=== PATIENT | male | born 1935 | race Caucasian/White ===

== ENCOUNTER 2017-10-25 06:29 | Observation (INO) ==
[2017-10-25] MEDS ORDERED: ASPIRIN 325 MG TABLET PO STA (06:56)
[2017-10-25] MEDS ORDERED: ASPIRIN 325 MG TABLET ONE (07:07)
[2017-10-25 07:41] LABS: Basophils % 0.2 % (0.0-0.8); Eosinophils # 0.1 10*3/uL (0.0-0.87); Eosinophils % 1.2 % (0.00-10.9); Hematocrit 35.1 VOL% (42.0-52.0); Hemoglobin 11.4 GM/DL (14.0-18.0); Immature Granulocytes % 0.3 %; Immature Granulocytes Absolute 0.03 #; Lymphocytes # 1.2 10*3/uL (1.4-4.0); Lymphocytes % 13.6 % (21.2-54.2); Mean Corpuscular HGB Conc 32.5 GM/DL (32-36); Mean Corpuscular Hemoglobin 29 PG (27-34); Mean Corpuscular Volume 89.3 FL (87-102); Mean Platelet Volume 11.4 FL (9.6-12.0); Monocytes # 0.7 10*3/uL (0.11-0.8); Monocytes % 8.5 % (1.7-12.7); Neutrophils # 6.6 10*3/uL (1.4-7.4); Neutrophils % 76.2 % (38.7-73.9); Platelet Count 142 T/CUMM (130-400); Red Blood Count 3.93 MC/CUMM (3.8-5.5); Red Cell Distribution Width 12.2 % (9.3-17.3); White Blood Count 8.6 T/CUMM (4-12)
[2017-10-25] MEDS ORDERED: ENOXAPARIN 100 MG/ML SYRINGE SUBCUT STA (07:41)
[2017-10-25] MEDS ORDERED: ENOXAPARIN 100 MG/ML SYRINGE SUBCUT ONE (07:43)
[2017-10-25 07:52] LABS: PT Patient Result 10.5 SECS; Partial Thromboplastin Time 26.1 SECS (0-40)
[2017-10-25 08:06] LABS: Apearance,Urine CLEAR (Clear); Bilirubin,Urine Negative (Negative); Blood, Urine Negative (Negative); Glucose,Urine (UA) Negative (Negative); Ketones,Urine Negative (Negative); Mucus,Urine Occasional /LPF (Occasional); Nitrite,Urine Negative (Negative); Protein,Urine Negative; RBC,Urine 1 /HPF (0-4); Squamous Epithelial Cell,Urine Occasional /HPF (0-10); Urine Color Yellow (Yellow); Urine Specific Gravity 1.016 (1.001-1.035); WBC,Urine <1 /HPF (0-6)
[2017-10-25 08:14] LABS: Albumin 3.2 G/DL (3.4-5.0); Bilirubin,Total 0.6 MG/DL (0.2-1.0); Calcium 8.7 MG/DL (8.5-10.1); Potassium 4.3 MMOL/L (3.5-5.1); Total Protein 6.6 G/DL (6.4-8.3)
[2017-10-25 08:25] LABS: Barbiturates Screen,Urine Negative (Negative); Benzodiazepines Screen,Urine Negative (Negative); Cannabinoid Screen,Urine Negative (Negative); Opiate Screen,Urine Negative (Negative); Phencyclidine Screen,Urine Negative (Negative)
[2017-10-25] MEDS ORDERED: ONDANSETRON 4 MG/2 ML VIAL IV PRN (10:31)
[2017-10-25] MEDS ORDERED: ZALEPLON 5 MG CAPSULE PO PRN (10:31)
[2017-10-25] MEDS ORDERED: ACETAMINOPHEN 325 MG TABLET PO PRN (10:31)
[2017-10-25] MEDS ORDERED: NITROGLYCERIN SL 0.4 MG TABLET SL PRN (10:31)
[2017-10-25] MEDS ORDERED: MAGNESIUM SULF RIDER 2 GM in PREMIX 1 EACH IV PRN (10:31)
[2017-10-25] MEDS ORDERED: BISACODYL 5 MG TABLET PO PRN (10:31)
[2017-10-25] MEDS: ENOXAPARIN 40 MG/0.4 ML SYRINGE SUBCUT SCH ×2 (13:34→13:40)
[2017-10-25] MEDS: CARVEDILOL 3.125 MG TABLET PO SCH ×3 (13:34→21:25)
[2017-10-26 07:56] LABS: Basophils % 0.7 % (0.0-0.8); Eosinophils # 0.1 10*3/uL (0.0-0.87); Eosinophils % 1.6 % (0.00-10.9); Hematocrit 33.3 VOL% (42.0-52.0); Hemoglobin 10.9 GM/DL (14.0-18.0); Immature Granulocytes % 0.2 %; Immature Granulocytes Absolute 0.01 #; Lymphocytes # 1.3 10*3/uL (1.4-4.0); Lymphocytes % 22.8 % (21.2-54.2); Mean Corpuscular HGB Conc 32.7 GM/DL (32-36); Mean Corpuscular Hemoglobin 29 PG (27-34); Mean Platelet Volume 11.6 FL (9.6-12.0); Monocytes # 0.6 10*3/uL (0.11-0.8); Monocytes % 10.9 % (1.7-12.7); Neutrophils # 3.7 10*3/uL (1.4-7.4); Neutrophils % 63.8 % (38.7-73.9); Platelet Count 123 T/CUMM (130-400); Red Blood Count 3.74 MC/CUMM (3.8-5.5); Red Cell Distribution Width 12.1 % (9.3-17.3); White Blood Count 5.8 T/CUMM (4-12)
[2017-10-26 08:39] LABS: Bilirubin,Total 0.6 MG/DL (0.2-1.0); Calcium 8.6 MG/DL (8.5-10.1); Potassium 3.9 MMOL/L (3.5-5.1); Total Protein 5.7 G/DL (6.4-8.3)
[2017-10-26] MEDS: ENOXAPARIN 40 MG/0.4 ML SYRINGE SUBCUT SCH (12:48)
[2017-10-26] MEDS ORDERED: diphenhydrAMINE CAP 25 MG CAPSULE PO PRN (14:21)
[2017-10-26] MEDS ORDERED: guaiFENesin/DM ER 600-30 MG TABLET PO PRN (14:21)
[2017-10-26] MEDS: CARVEDILOL 3.125 MG TABLET PO SCH ×2 (15:40→21:11)
[2017-10-26] MEDS: ASPIRIN EC 81 MG TABLET PO SCH (15:40)
[2017-10-26] MEDS ORDERED: DEXTROSE 50% 25 GM/50 ML VIAL IV PRN (16:42)
[2017-10-26] MEDS ORDERED: GLUCAGON 1 MG VIAL IM PRN (16:42)
[2017-10-26] MEDS ORDERED: BISACODYL 5 MG TABLET PO PRN (17:08)
[2017-10-26] MEDS ORDERED: DUTASTERIDE 0.5 MG CAPSULE PO SCH (21:00)
[2017-10-26] MEDS ORDERED: SIMVASTATIN 40 MG TABLET PO SCH (21:00)
[2017-10-26] MEDS: TAMSULOSIN 0.4 MG CAPSULE PO SCH (21:10)
[2017-10-26] MEDS: glipiZIDE 5 MG TABLET PO SCH (21:11)
[2017-10-26] MEDS: INSULIN LISPRO 100 UNIT/ML SUBCUT SCH (21:14)
[2017-10-27] MEDS ORDERED: SODIUM CHLORIDE 0.9% 1,000 ML IV SCH (03:00)
[2017-10-27 05:53] LABS: Basophils % 0.4 % (0.0-0.8); Eosinophils # 0.1 10*3/uL (0.0-0.87); Eosinophils % 1.6 % (0.00-10.9); Hematocrit 35.3 VOL% (42.0-52.0); Hemoglobin 11.4 GM/DL (14.0-18.0); Immature Granulocytes % 0.4 %; Immature Granulocytes Absolute 0.02 #; Lymphocytes # 1.4 10*3/uL (1.4-4.0); Lymphocytes % 24.4 % (21.2-54.2); Mean Corpuscular HGB Conc 32.3 GM/DL (32-36); Mean Corpuscular Hemoglobin 29 PG (27-34); Mean Corpuscular Volume 89.1 FL (87-102); Mean Platelet Volume 11.4 FL (9.6-12.0); Monocytes # 0.6 10*3/uL (0.11-0.8); Monocytes % 10.6 % (1.7-12.7); Neutrophils # 3.5 10*3/uL (1.4-7.4); Neutrophils % 62.6 % (38.7-73.9); Platelet Count 138 T/CUMM (130-400); Red Blood Count 3.96 MC/CUMM (3.8-5.5); Red Cell Distribution Width 11.9 % (9.3-17.3); White Blood Count 5.5 T/CUMM (4-12)
[2017-10-27] MEDS ORDERED: diphenhydrAMINE CAP 25 MG CAPSULE PO ONE (06:00)
[2017-10-27 06:17] LABS: Calcium 8.7 MG/DL (8.5-10.1); Potassium 4.2 MMOL/L (3.5-5.1)
[2017-10-27] MEDS ORDERED: DIAZEPAM 5 MG TABLET PO ONE (07:00)
[2017-10-27] MEDS ORDERED: LIDOCAINE 1%/EPI INJ 20 ML VIAL ONE (07:05)
[2017-10-27] MEDS ORDERED: HEPARIN/NACL 0.9% 2 UNITS/ML 2,000 ML IV ONE (07:05)
[2017-10-27] MEDS: ASPIRIN EC 81 MG TABLET PO SCH ×2 (07:11→08:40)
[2017-10-27] MEDS: PANTOPRAZOLE 40 MG TABLET PO SCH ×2 (07:12→08:41)
[2017-10-27] MEDS: CARVEDILOL 3.125 MG TABLET PO SCH ×2 (07:12→08:41)
[2017-10-27] MEDS: INSULIN LISPRO 100 UNIT/ML SUBCUT SCH ×2 (07:25→12:44)
[2017-10-27] MEDS ORDERED: MIDAZOLAM 2 MG/2 ML VIAL ONE (07:30)
[2017-10-27] MEDS ORDERED: fentaNYL 100 MCG/2 ML VIAL ONE (07:30)
[2017-10-27] MEDS: glipiZIDE 5 MG TABLET PO SCH (08:38)
[2017-10-27] MEDS: TAMSULOSIN 0.4 MG CAPSULE PO SCH (08:39)
[2017-10-27] MEDS ORDERED: ISOSORBIDE MONONITRATE 30 MG TABLET PO SCH (09:00)
[2017-10-27] MEDS ORDERED: LEVOTHYROXINE 75 MCG TABLET PO SCH (09:00)
[2017-10-27 16:34] VITALS: BP 122/56
== END 2017-10-27 17:35 | disposition home or self-care (01) ==
LOC: N.EDINP 06:29 → N.ED 06:29 → N.EDINP 11:35 → N.TELEN 11:59
PROVIDERS: ADMIT Internal Medicine Cardiovascular Disease; ATTEND Internal Medicine Cardiovascular Disease

== ENCOUNTER 2022-12-18 08:40 | Observation (INO) ==
[2022-12-18 09:06] LABS: Basophils % 0.3 % (0.0-0.8); Eosinophils % 0.1 % (0.00-10.9); Hemoglobin 10.9 GM/DL (14.0-18.0); Immature Granulocytes % 0.4 %; Immature Granulocytes Absolute 0.03 #; Lymphocytes # 0.6 10*3/uL (1.4-4.0); Mean Corpuscular HGB Conc 31.1 GM/DL (32-36); Mean Corpuscular Volume 96.2 FL (87-102); Mean Platelet Volume 10.6 FL (9.6-12.0); Monocytes # 0.6 10*3/uL (0.11-0.8); Neutrophils % 83.2 % (38.7-73.9); Platelet Count 124 T/CUMM (130-400); Red Blood Count 3.64 MC/CUMM (3.8-5.5); Red Cell Distribution Width 13.5 % (9.3-17.3); White Blood Count 7.15 T/CUMM (4-12)
[2022-12-18] MEDS ORDERED: FUROSEMIDE 100 MG/10 ML VIAL IV STA (09:18)
[2022-12-18 09:24] LABS: Albumin 3.2 G/DL (3.4-5.0); Bilirubin,Total 0.5 MG/DL (0.20-1.00); Calcium 8.5 MG/DL (8.5-10.1); Osmolality,Calculated 283.7 MOS/KG (273-304); Potassium 4.3 MMOL/L (3.5-5.1); Total Protein 6.4 G/DL (6.4-8.2)
[2022-12-18] MEDS ORDERED: GLUCAGON 1 MG VIAL IM PRN (10:59)
[2022-12-18] MEDS ORDERED: hydrALAZINE 20 MG/1 ML VIAL IV PRN (10:59)
[2022-12-18] MEDS ORDERED: ONDANSETRON 4 MG/2 ML VIAL IV PRN (10:59)
[2022-12-18] MEDS: HEPARIN 5,000 UNIT/1 ML VIAL SUBCUT SCH ×2 (11:00→21:32)
[2022-12-18] MEDS ORDERED: BISACODYL 5 MG TABLET PO PRN (11:04)
[2022-12-18] MEDS ORDERED: ALPRAZolam 0.5 MG TABLET PO PRN ×2 (11:04→17:58)
[2022-12-18] MEDS ORDERED: DEXTROSE 10% 250 ML BAG IV PRN (11:18)
[2022-12-18] MEDS: INSULIN LISPRO 100 UNIT/ML SUBCUT SCH ×3 (11:30→20:30)
[2022-12-18] MEDS: glipiZIDE 5 MG TABLET PO SCH (17:27)
[2022-12-18] MEDS: carvediloL 6.25 MG TABLET PO SCH (17:28)
[2022-12-18] MEDS ORDERED: SIMVASTATIN 80 MG TABLET PO SCH (21:00)
[2022-12-18] MEDS ORDERED: ALPRAZolam 0.5 MG TABLET PO SCH (21:00)
[2022-12-18] MEDS ORDERED: DUTASTERIDE 0.5 MG CAPSULE PO SCH (21:00)
[2022-12-18] MEDS: FUROSEMIDE 40 MG/4 ML VIAL IV SCH (21:32)
[2022-12-18] MEDS: TAMSULOSIN 0.4 MG CAPSULE PO SCH (21:33)
[2022-12-19] MEDS: HEPARIN 5,000 UNIT/1 ML VIAL SUBCUT SCH ×2 (03:11→11:31)
[2022-12-19 04:51] LABS: Basophils % 0.3 % (0.0-0.8); Eosinophils % 0.4 % (0.00-10.9); Hematocrit 35.3 VOL% (42.0-52.0); Hemoglobin 11.3 GM/DL (14.0-18.0); Immature Granulocytes % 0.5 %; Immature Granulocytes Absolute 0.04 #; Lymphocytes # 0.9 10*3/uL (1.4-4.0); Lymphocytes % 11.4 % (21.2-54.2); Mean Corpuscular Volume 95.1 FL (87-102); Mean Platelet Volume 11.1 FL (9.6-12.0); Monocytes # 0.8 10*3/uL (0.11-0.8); Monocytes % 9.9 % (1.7-12.7); Neutrophils % 77.5 % (38.7-73.9); Platelet Count 122 T/CUMM (130-400); Red Blood Count 3.71 MC/CUMM (3.8-5.5); Red Cell Distribution Width 13.8 % (9.3-17.3); White Blood Count 7.69 T/CUMM (4-12)
[2022-12-19 05:03] LABS: Calcium 8.8 MG/DL (8.5-10.1); Potassium 4.5 MMOL/L (3.5-5.1); Risk Ratio 1.75; VLDL Cholesterol 15.4 MG/DL
[2022-12-19] MEDS ORDERED: LEVOTHYROXINE 75 MCG TABLET PO SCH (06:30)
[2022-12-19 08:09] VITALS: BP 104/56
[2022-12-19] MEDS ORDERED: ASPIRIN EC 81 MG TABLET PO SCH (09:00)
[2022-12-19] MEDS ORDERED: ISOSORBIDE MONONITRATE 30 MG TABLET PO SCH (09:00)
[2022-12-19] MEDS: carvediloL 6.25 MG TABLET PO SCH (09:28)
[2022-12-19] MEDS: FUROSEMIDE 40 MG/4 ML VIAL IV SCH (09:28)
[2022-12-19] MEDS: INSULIN LISPRO 100 UNIT/ML SUBCUT SCH ×2 (09:29→11:31)
[2022-12-19] MEDS: glipiZIDE 5 MG TABLET PO SCH (09:29)
[2022-12-19] MEDS: TAMSULOSIN 0.4 MG CAPSULE PO SCH (09:41)
== END 2022-12-19 11:44 | disposition home health service (06) ==
LOC: N.ED 08:40 → N.EDINP 08:40 → N.TELES 12:43
PROVIDERS: ADMIT Internal Medicine; ATTEND Internal Medicine